=== PATIENT | female | born 1945 | race Caucasian/White ===

== ENCOUNTER 2021-01-29 09:40 | Emergency (ER) | payer OTHER ==
[~2021-01-29] VITALS: Ht 167.6 cm; Wt 65.8 kg
[~2021-01-29 09:40] MED LIST: ASPI325 PO; CALGLU500; ERGO400
[2021-01-29] MEDS ORDERED: PRED1 PO (09:53)
== END 2021-01-29 11:22 | disposition home or self-care (01) ==
LOC: ER 09:40
DX: S06.0X0A Concussion without loss of consciousness, initial encounter (principal); J43.9 Emphysema, unspecified; Z88.8 Allergy status to other drugs, medicaments and biological substances; W22.8XXA Striking against or struck by other objects, initial encounter
CPT/HCPCS: 70450; 99283-25

== ENCOUNTER → 2023-08-25 | Outpatient (CLI) | payer OTHER ==
[~2023-08-25] MED LIST changes: +FISH OIL 1,2001 EAC7; +PRED1 PO
== END ==
LOC: LAB 08:38 → LAB SHORT 08:38
DX: N39.0 Urinary tract infection, site not specified (principal)
CPT/HCPCS: 87086

== ENCOUNTER → 2023-09-17 | Outpatient (CLI) | payer OTHER | LOC: LAB SHORT 06:27 → LAB 06:27 → LAB SHORT 09-18 06:27 | DX: M54.9 Dorsalgia, unspecified (principal) | CPT/HCPCS: 87086 ==

== ENCOUNTER 2023-09-20 08:00 | Emergency (ER) | payer OTHER ==
[~2023-09-20] VITALS: Ht 170.2 cm; Wt 72.6 kg
[2023-09-20 09:22] LABS: Source, Urine Clean Catch
[2023-09-20 09:25] LABS: Bilirubin, Urine Neg (Neg); Blood, Urine Neg (Neg); Glucose Qualitative, Urine Neg (Neg); Ketones, Urine Neg (Neg); Leukocyte Esterase, Urine 1+ (Neg); Nitrite, Urine Neg (Neg); Protein, Urine Neg (Neg); Urobilinogen, Urine NORM (Normal)
[2023-09-20 09:26] LABS: BASOPHILS ABSOLUTE AUTO 0.01 K/mm3 (0.00-0.23); BASOPHILS PERCENT AUTO 0 % (0-2); EOSINOPHILS ABSOLUTE AUTO 0.02 K/mm3 (0.00-0.68); EOSINOPHILS PERCENT AUTO 0 % (0-6); Hematocrit 39.3 % (33.0-51.0); Hemoglobin 12.8 g/dL (11.5-16.0); IMMATURE GRAN ABSOLUTE AUTO 0.02 K/mm3 (0.00-0.10); IMMATURE GRAN PERCENT AUTO 0 % (0-1); LYMPHOCYTES ABSOLUTE AUTO 1.41 K/mm3 (0.84-5.20); LYMPHOCYTES PERCENT AUTO 30 % (21-46); MONOCYTES ABSOLUTE AUTO 0.42 K/mm3 (0.16-1.47); MONOCYTES PERCENT AUTO 9 % (4-13); Mean Corpuscular HGB 30.8 pg (26.0-34.0); Mean Corpuscular HGB Conc 32.6 g/dL (31.5-36.5); Mean Corpuscular Volume 95 fL (80-100); Mean Platelet Volume 9.6 fL (9.1-12.4); NEUTROPHILS ABSOLUTE AUTO 2.77 K/mm3 (1.96-9.15); NEUTROPHILS PERCENT AUTO 60 % (41-73); Platelet Count 181 K/mm3 (150-400); RDW Coefficient Variation 12.4 % (11.7-14.2); RDW Standard Deviation 43.2 fL (35.1-46.3); Red Blood Cell Count 4.16 M/mm3 (3.80-5.20); White Blood Cell Count 4.65 K/mm3 (4.00-11.30)
[2023-09-20 09:34] LABS: Appearance, Urine Hazy (Clear); Color, Urine Yellow (P-Yellow)
[2023-09-20 09:36] LABS: Amorphous Mod (0-Heavy); Bacteria Mod /hpf; Red Blood Cells, Urine 0-2 /hpf (0-2); Squamous Epithelial Cells Few /hpf (Few)
[2023-09-20 10:02] LABS: Albumin, Blood 3.4 g/dL (3.4-5.0); Albumin/Globulin Ratio 0.8 (0.8-1.8); Bilirubin, Total 0.4 mg/dL (0.1-1.0); Bun/Creatinine Ratio 23.1 (12.0-20.0); Creatinine, Blood 0.91 mg/dL (0.40-1.00); Potassium, Blood 4.4 mmol/L (3.5-5.5); Total Protein, Blood 7.4 g/dL (6.4-8.2)
[2023-09-20 10:43] VITALS: BP 140/82
== END 2023-09-20 10:44 | disposition home or self-care (01) ==
LOC: ER 08:00
PROVIDERS: Physician Assistant
DX: M54.50 Low back pain, unspecified (principal); M51.36 Other intervertebral disc degeneration, lumbar region; M43.16 Spondylolisthesis, lumbar region; Z88.8 Allergy status to other drugs, medicaments and biological substances; Z79.52 Long term (current) use of systemic steroids
CPT/HCPCS: 72100; 80053; 81001; 85025; 87086; 99283-25

== ENCOUNTER → 2024-07-05 | Outpatient (CLI) | payer OTHER ==
[2024-07-05 11:40] LABS: Source, Urine Clean Catch
[2024-07-05 14:00] LABS: Appearance, Urine Clear (Clear); Bilirubin, Urine Neg (Neg); Blood, Urine Neg (Neg); Color, Urine Yellow (P-Yellow); Glucose Qualitative, Urine Neg (Neg); Ketones, Urine Neg (Neg); Leukocyte Esterase, Urine Neg (Neg); Nitrite, Urine Neg (Neg); Protein, Urine Neg (Neg); Specific Gravity, Urine 1.015 (1.003-1.022); Urobilinogen, Urine NORM (Normal); pH, Urine 6.5 (5.0-8.0)
== END | disposition home or self-care (01) ==
LOC: LAB SHORT 10:00 → LAB 10:00
PROVIDERS: Nurse Practitioner Family
DX: N39.0 Urinary tract infection, site not specified (principal)
CPT/HCPCS: 81003; 87086

== ENCOUNTER → 2024-07-07 | Outpatient (CLI) | payer OTHER | END | disposition home or self-care (01) | LOC: LAB 18:48 → LAB SHORT 18:48 | DX: R35.0 Frequency of micturition (principal); R30.0 Dysuria | CPT/HCPCS: 87086 ==

== ENCOUNTER → 2024-10-06 | Outpatient (CLI) | payer OTHER | LOC: LAB SHORT 17:03 → LAB 17:03 | DX: N39.0 Urinary tract infection, site not specified (principal) | CPT/HCPCS: 87086 ==

== ENCOUNTER 2024-10-16 20:57 | Emergency (ER) | payer OTHER ==
[~2024-10-16] VITALS: Ht 167.6 cm; Wt 81.7 kg
[2024-10-16 21:04] VITALS: BP 134/64
[2024-10-16 21:37] LABS: CORONAVIRUS COVID-19 AG Negative (NEGATIVE); INFLUENZA A AG Negative (NEGATIVE); INFLUENZA B AG Negative (NEGATIVE)
== END 2024-10-16 22:05 | disposition left against medical advice (07) ==
LOC: ER 20:57
PROVIDERS: Student in an Organized Health Care Education/Training Program
DX: R11.2 Nausea with vomiting, unspecified (principal); R19.7 Diarrhea, unspecified; Z53.21 Procedure and treatment not carried out due to patient leaving prior to being seen by health care provider
CPT/HCPCS: 87428-QW